=== PATIENT | male | born 1955 | race Caucasian/White ===

== ENCOUNTER 2023-07-09 10:09 | Emergency (ER) | payer MEDICARE ==
[~2023-07-09] VITALS: Ht 185.4 cm; Wt 90.7 kg
[2023-07-09] MEDS ORDERED: ATEN50 PO (10:45)
[2023-07-09] MEDS ORDERED: PRAV20 PO (10:46)
[2023-07-09] MEDS ORDERED: LOSA50 PO (10:46)
[2023-07-09] MEDS ORDERED: AMLO5 PO (10:46)
[2023-07-09] MEDS ORDERED: DOXAZOSIN MESYLA4 MG PO (10:47)
[2023-07-09 10:58] LABS: BASOPHILS ABSOLUTE AUTO 0.04 K/mm3 (0.00-0.23); BASOPHILS PERCENT AUTO 1 % (0-2); EOSINOPHILS ABSOLUTE AUTO 0.09 K/mm3 (0.00-0.68); EOSINOPHILS PERCENT AUTO 2 % (0-6); Hematocrit 50.3 % (37.0-53.0); Hemoglobin 18.3 g/dL (13.5-17.5); IMMATURE GRAN ABSOLUTE AUTO 0.01 K/mm3 (0.00-0.10); IMMATURE GRAN PERCENT AUTO 0 % (0-1); LYMPHOCYTES ABSOLUTE AUTO 1.46 K/mm3 (0.84-5.20); LYMPHOCYTES PERCENT AUTO 25 % (21-46); MONOCYTES ABSOLUTE AUTO 0.82 K/mm3 (0.16-1.47); MONOCYTES PERCENT AUTO 14 % (4-13); Mean Corpuscular HGB 34.6 pg (26.0-34.0); Mean Corpuscular HGB Conc 36.4 g/dL (31.5-36.5); Mean Corpuscular Volume 95 fL (80-100); Mean Platelet Volume 9.9 fL (9.1-12.4); NEUTROPHILS PERCENT AUTO 58 % (41-73); Platelet Count 181 K/mm3 (150-400); Red Blood Cell Count 5.29 M/mm3 (4.30-5.90); White Blood Cell Count 5.82 K/mm3 (4.00-11.30)
[2023-07-09 11:14] LABS: Albumin, Blood 3.7 g/dL (3.4-5.0); Bilirubin, Total 0.6 mg/dL (0.1-1.0); Calcium, Blood 8.9 mg/dL (8.5-10.1); Creatinine, Blood 0.64 mg/dL (0.60-1.20); Globulin, Blood 3.6 g/dL (2.2-4.0); Potassium, Blood 3.9 mmol/L (3.5-5.5); Total Protein, Blood 7.3 g/dL (6.4-8.2)
[2023-07-09 11:45] LABS: Source, Urine Clean Catch
[2023-07-09 12:03] LABS: Bilirubin, Urine Neg (Neg); Blood, Urine Neg (Neg); Glucose Qualitative, Urine Neg (Neg); Ketones, Urine Neg (Neg); Leukocyte Esterase, Urine Neg (Neg); Nitrite, Urine Neg (Neg); Protein, Urine Neg (Neg); Specific Gravity, Urine 1.005 (1.003-1.022); Urobilinogen, Urine NORM (Normal)
[2023-07-09 12:04] LABS: Appearance, Urine Clear (Clear); Color, Urine Yellow (P-Yellow)
[2023-07-09] MEDS ORDERED: OXYC5 PO (13:21)
[2023-07-09] MEDS ORDERED: METPRE4DP PO (13:21)
[2023-07-09 13:29] VITALS: BP 153/104
== END 2023-07-09 13:30 | disposition home or self-care (01) ==
LOC: ER 10:09
PROVIDERS: Physician Assistant
DX: M54.16 Radiculopathy, lumbar region (principal); F17.200 Nicotine dependence, unspecified, uncomplicated
CPT/HCPCS: 74177; 80053; 81003; 83690; 85025; 99284-25; Q9967

== ENCOUNTER 2024-06-28 08:29 | Inpatient (IN) | payer MEDICARE ==
[~2024-06-28] VITALS: Ht 185.4 cm; Wt 80.4 kg
[~2024-06-28 08:29] MED LIST: AMLO5 PO; ATEN50 PO; DOXAZOSIN MESYLA4 MG PO; LOSA50 PO; METPRE4DP PO; OXYC5 PO; PRAV20 PO
[2024-06-28] MEDS ORDERED: AMLODIPINE BESYL5 MG PO (09:16)
[2024-06-28] MEDS ORDERED: LOSARTAN-HCTZ1 EACH PO (09:17)
[2024-06-28] MEDS ORDERED: NEURONTIN300 MG PO (09:18)
[2024-06-28] MEDS ORDERED: Ondansetron HCl 2 MG / ML 2ML Vial IV ONE (10:00)
[2024-06-28] MEDS ORDERED: Morphine Sulfate 4 MG/1 ML Injection IV ONE (10:00)
[2024-06-28] MEDS ORDERED: NS 1,000 ML IV SCH ×3 (10:00→14:25)
[2024-06-28 10:48] LABS: BASOPHILS ABSOLUTE AUTO 0.06 K/mm3 (0.00-0.23); BASOPHILS PERCENT AUTO 1 % (0-2); EOSINOPHILS ABSOLUTE AUTO 0.04 K/mm3 (0.00-0.68); EOSINOPHILS PERCENT AUTO 1 % (0-6); Hemoglobin 16.4 g/dL (13.5-17.5); IMMATURE GRAN ABSOLUTE AUTO 0.02 K/mm3 (0.00-0.10); IMMATURE GRAN PERCENT AUTO 0 % (0-1); LYMPHOCYTES PERCENT AUTO 11 % (21-46); MONOCYTES ABSOLUTE AUTO 0.72 K/mm3 (0.16-1.47); MONOCYTES PERCENT AUTO 9 % (4-13); Mean Corpuscular HGB 35.5 pg (26.0-34.0); Mean Corpuscular HGB Conc 37.3 g/dL (31.5-36.5); Mean Corpuscular Volume 95 fL (80-100); NEUTROPHILS ABSOLUTE AUTO 6.16 K/mm3 (1.96-9.15); NEUTROPHILS PERCENT AUTO 78 % (41-73); Platelet Count 194 K/mm3 (150-400); RDW Coefficient Variation 12.1 % (11.7-14.2); RDW Standard Deviation 42.2 fL (35.1-46.3); Red Blood Cell Count 4.62 M/mm3 (4.30-5.90)
[2024-06-28 11:14] LABS: Albumin, Blood 3.8 g/dL (3.4-5.0); Albumin/Globulin Ratio 1.2 (0.8-1.8); Bun/Creatinine Ratio 16.2 (12.0-20.0); Calcium, Blood 9.1 mg/dL (8.5-10.1); Creatinine, Blood 0.56 mg/dL (0.60-1.20); Globulin, Blood 3.3 g/dL (2.2-4.0); Potassium, Blood 4.3 mmol/L (3.5-5.5); Total Protein, Blood 7.1 g/dL (6.4-8.2)
[2024-06-28 11:44] LABS: Influenza A, PCR NEGATIVE (NEGATIVE); Influenza B, PCR NEGATIVE (NEGATIVE); Resp Syncytial Virus, PCR NEGATIVE (NEGATIVE); SARS-Cov-2 (COVID-19) PCR, MMC NEGATIVE (NEGATIVE)
[2024-06-28] MEDS ORDERED: DiphenhydrAMINE HCl 50 MG/ML 1ML Vial IV ONE (12:25)
[2024-06-28] MEDS ORDERED: CefTRIAXone Sodium 1,000 MG in NS 100 ML IV ONE (12:25)
[2024-06-28] MEDS ORDERED: Acetaminophen 500 MG Tab PO ONE (12:25)
[2024-06-28] MEDS ORDERED: Prochlorperazine Edisylate 10 mg Vial IV ONE (12:25)
[2024-06-28] MEDS ORDERED: Folic Acid 1 MG TAB PO ONE (13:05)
[2024-06-28] MEDS ORDERED: Thiamine HCl 100 MG in NS 50 ML IV ONE (13:05)
[2024-06-28 13:18] LABS: Magnesium, Blood 1.8 mg/dL (1.6-2.4); Phosphorus, Blood 3.3 mg/dL (2.5-4.9)
[2024-06-28] MEDS ORDERED: LORazepam 2 MG/ML 1ML Injection IV PRN ×2 (14:00→14:05)
[2024-06-28] MEDS ORDERED: FLU VACC TS2024-25(6MOS UP)/PF 45 MCG/0.5 ML SYRINGE IM SCH (14:05)
[2024-06-28] MEDS ORDERED: Ondansetron HCl 2 MG / ML 2ML Vial IV PRN (14:05)
[2024-06-28] MEDS ORDERED: ChlordiazePOXIDE 25 MG Cap PO PRN ×2 (14:05)
[2024-06-28 14:08] LABS: Source, Urine Clean Catch
[2024-06-28] MEDS ORDERED: HydrALAZINE HCl 20 MG / ML 1ML Vial IV PRN (14:15)
[2024-06-28 14:25] LABS: Appearance, Urine Clear (Clear); Bilirubin, Urine Neg (Neg); Blood, Urine 1+ (Neg); Color, Urine Yellow (P-Yellow); Glucose Qualitative, Urine Neg (Neg); Ketones, Urine 2+ (Neg); Leukocyte Esterase, Urine Neg (Neg); Nitrite, Urine Neg (Neg); Protein, Urine Neg (Neg); Urobilinogen, Urine NORM (Normal); pH, Urine 6.5 (5.0-8.0)
[2024-06-28 14:57] LABS: Bacteria Rare /hpf; Red Blood Cells, Urine 0-2 /hpf (0-2); Squamous Epithelial Cells Rare /hpf (Few); White Blood Cells, Urine 0-2 /hpf (0-5)
[2024-06-28 16:00] VITALS: BP 173/99
[2024-06-28] MEDS ORDERED: Thiamine HCl 500 MG in NS 100 ML IV SCH (16:00)
[2024-06-28] MEDS ORDERED: Folic Acid 1 MG in NS 50 ML IV SCH (16:00)
[2024-06-28 16:30] VITALS: BP 165/125
[2024-06-28 16:50] VITALS: BP 159/112
--- NOTE | 2024-06-28 18:00 | NUR ---
NURSE NOTE PATIENT ARRIVED VIA GUR[facility]Y, DANGLED AT BEDSIDE THEN TRANSFERED TO PCU BED. PT SEEMS TO BE A BIT UNSTEADY ON HIS FEET. RESIDENTIAL GLAZIER SOCKS WERE APPLIED TO PATIENT'S FEET, BED ALARM ON, AND PATIENT ORIENTATED TO ROOM, UNIT FLOW, AND CALL LIGHT. SPOUSE WAS AT BEDSIDE AT ARRIVAL, SHE SAID SHE WILL BE BACK IN THE MORNING. DURING ADMISTION ASSESSMENT I ASKED THE PATIENT IF HE WISHED TO ABSTAIN FROM ALCOHOL USE ONCE DISCHARGED FROM THE HOSPITAL HE STATED NO, HE WILL CONTINUE TO DRINK WHEN HE GETS HOME. HIS MAIN CONCERN WITH COMING INTO THE HOSPITAL TODAY IS WANTING AN MRI ON HIS BACK FOR INCREASING PAIN AND DECREASING MOBILITY LEVELS. CALL LIGHT IN REACH, WILL CONTINUE TO TREAT UNTIL SHIFT CHANGE.
[2024-06-28 19:14] VITALS: BP 170/97
[2024-06-28] MEDS ORDERED: Famotidine 20 MG Tab PO SCH (21:00)
[2024-06-28] MEDS ORDERED: Tamsulosin HCl 0.4 MG Cap PO SCH (21:00)
[2024-06-28] MEDS ORDERED: Gabapentin 300 MG Cap PO SCH (21:00)
[2024-06-28 23:56] VITALS: BP 172/91
[2024-06-29] VITALS (7 sets, daily range): BP systolic 119–178; BP diastolic 68–111
[2024-06-29 06:10] LABS: Bun/Creatinine Ratio 19.9 (12.0-20.0); Calcium, Blood 8.9 mg/dL (8.5-10.1); Creatinine, Blood 0.5 mg/dL (0.60-1.20); Potassium, Blood 4.2 mmol/L (3.5-5.5)
--- NOTE | 2024-06-29 06:57 | NUR ---
NOC SHIFT SUMMARY PT IS ORIENTED X3-4 OVERNIGHT, CIWAS RANGING LOW TO HIGH, PRN ATIVAN GIVEN AND LIBRIUM - SEE EMAR AND ETOH W/D SCALE FOR DETAILS. SCATH X2 PER PROTOCOL, ABLE TO VOID SOME BUT RETAINED 600+ X2. TOLERATED WELL WITH COUDE CATH AND DEEP BREATHING. SR ON TELEMETRY, HTN NOTED - NOTIFIED DR. VALARIE GUTIERREZ AND PRN HYDRALIZINE ADDED. NO EDEMA, NO WOUNDS, PLEASANT AND COOPERATIVE. CALLED AND UPDATED, WILL BE IN THIS AM.
[2024-06-29] MEDS ORDERED: Enoxaparin 40 MG/0.4 ML SYR SC SCH (09:00)
[2024-06-29] MEDS ORDERED: Atenolol 50 MG Tab PO SCH (09:00)
[2024-06-29] MEDS ORDERED: Folic Acid 1 MG in NS 50 ML IV SCH (09:00)
[2024-06-29] MEDS ORDERED: Misc. Tablet PO SCH (09:00)
[2024-06-29] MEDS ORDERED: AmLODIPine Besylate 5 MG Tab PO SCH (09:00)
--- NOTE | 2024-06-29 09:19 | NUR ---
NURSE NOTE PATIENT AT BEDSIDE ASSITING WITH FILLING OUT MRI FORM. CALL LIGHT IN REACH.
[2024-06-29 11:22] LABS: Source, Urine Foley catheter
[2024-06-29 11:25] LABS: Bilirubin, Urine Neg (Neg); Blood, Urine Neg (Neg); Glucose Qualitative, Urine Neg (Neg); Ketones, Urine 2+ (Neg); Leukocyte Esterase, Urine Neg (Neg); Nitrite, Urine Neg (Neg); Protein, Urine Neg (Neg); Urobilinogen, Urine NORM (Normal)
[2024-06-29 11:32] LABS: Appearance, Urine Clear (Clear); Color, Urine Yellow (P-Yellow)
--- NOTE | 2024-06-29 17:53 | NUR ---
SHIFT SUMMARY; ASSUMED CARE AT 0700 WITH ORIENTATION NURSE ANTONIO. A/A/0X3 DURING SHIFT WITH INTERMITANT CONFUSION. CIWAS PER PROTOCOL, MEDICATED PER EMAR. CRUZ CATH PLACED WITH VERBAL ORDER FROM DR. FONTAINE FOR ACUTE URINARY RETENTION, DRAINING CLEAR YELLOW URINE TO GRAVITY. MOVES SELF IN BED, UNSTEADY ON FEET WITH 2 PERSON ASSIST. WILL REMAIN ON BEDREST UNTIL CAN SAFLEY STAND. SPOUSE AT BEDSIDE DURING SHIFT. CIWAS 6-20. WILL CONTINUE TO TREAT UNTIL CHANGE OF SHIFT.
--- NOTE | 2024-06-29 20:49 | NUR ---
ASSUMPTION OF CARE NOTE. PT AOX3-4, DIRECTABLE, COOPERATIVE WITH CARE THUS FAR. SOMEWHAT IMPULSIVE, ATTEMPTS OOB AT TIMES BUT IS REDIRECTABLE BACK INTO BED. BED ALARM ACTIVE. CIWA 10 PRE LIBRIUM ADMINISTRATION. PT NOW RESTING COMFORTABLY IN BED EATING A SNACK. BP ELEVATED ON 1999 VITALS, MANAGED VIA EMAR. VITALS OTHERWISE STABLE. ABLE TO TAKE PO MEDICATIONS WITH WAR. FLUIDS INFUSING. CRUZ IN PLACE, DRAINING TO GRAVITY WITH NO COMPLAINTS OF PAIN/PRESSURE. BED LOCKED IN LOWEST POSITION. CALL LIGHT LEFT WITHIN REACH. CONTINUING TO MONITOR.
[2024-06-30] VITALS (7 sets, daily range): BP systolic 101–185; BP diastolic 70–101
--- NOTE | 2024-06-30 00:19 | NUR ---
PT CONTINUES TO REST IN BED SINCE 1999 MEDICATION ADMINISTRATION. 0000 VITALS STABLE. PT EASILY WOKEN AND COOPERATIVE WITH CARE UPON WAKING. MAINTAINING ADEQUATE SATURATION ON ROOM AIR WHILE SLEEPING. CRUZ CONTINUES TO DRAIN TO GRAVITY. BED LOCKED IN LOWEST POSITION. BED ALARM REMAINS ACTIVE. CALL LIGHT LEFT WITHIN REACH. CONTINUING TO MONITOR.
--- NOTE | 2024-06-30 04:26 | NUR ---
SHIFT SUMMARY. SHIFT HAS BEEN UNREMARKABLE SINCE PREVIOUS NOTE. PT HAS SLEPT THROUGH MOST OF SHIFT AFTER MEDICATION ADMINISTRATION. EASILY AWOKEN AND IS COOPERATIVE UPON WAKING. 0400 BP WAS ELEVATED, ADMINISTERED IV HYDRALAZINE FOR MANAGEMENT. BED LOCKED IN LOWEST POSITION. CALL LIGHT LEFT WITHIN REACH. BED ALARM REMAINS ACTIVE. CONTINUING TO MONITOR.
[2024-06-30 04:35] LABS: Bun/Creatinine Ratio 13.3 (12.0-20.0); Calcium, Blood 8.5 mg/dL (8.5-10.1); Creatinine, Blood 0.53 mg/dL (0.60-1.20); Potassium, Blood 3.4 mmol/L (3.5-5.5)
[2024-06-30] MEDS ORDERED: Potassium Chloride 20 MEQ TabCR PO ONE (08:20)
--- NOTE | 2024-06-30 09:58 | NUR ---
ASSUMPTION OF CARE PT ALERT, ORIETNED TO NAME/, YEAR, AND PLACE. HE IS SLEEPY, SKIN INTACT, SCATTERED BRUSING T/O. SINUS, 80'S, SBP ELEVATED MEDICATED PER EMAR. +BS, CRUZ IN PLACE DRAINING TO GRAVITY. L/S DIM/COARSE T/O, NONPRODUCTIVE COUGH. CIWA MONITORING PRN, MEDICATIONS ORDERED FOR CIWA >8. PT DENIES N/V THIS AM, NO AUDITORY/TACTILE DISTURBANCES NOTED, TREMORS NOTED WITH EXTENSION OF ARMS. LEFT FA IV, NS RUNNING PER ORDERED. PROVIDER TO BEDSIDE THIS AM TO DISCUSS PLAN OF CARE. PT TO WORK WITH P.T AND POSSIBLE D/C TODAY OR OTHER IMAGING DEPENDING ON HOW P.T GOES. PROVIDER ASKED FOR CALL TO HIM ONCE SPOUSE ARRIVES, SPOUSE TO BEDSIDE, PROVIDER CALLED AND AT BEDSIDE TO DISCUSS PLAN WITH PT AND SPOUSE. AWAITING PT EVAL TODAY, WILL MONITOR PT.
[2024-06-30] MEDS ORDERED: LORazepam 1 MG Tab PO PRN (15:05)
[2024-06-30] MEDS ORDERED: Nicotine 21 MG PATCH TOP SCH (15:20)
--- NOTE | 2024-06-30 18:34 | NUR ---
SHIFT SUMMARY PT ALERT, ORIENTED TO SELF, YEAR, PLACE. NO ACUTE CHANGES T/O SHIFT. P.T WORKED WITH PT THIS AM. CALL PLACED TO PROVIDER RELATED TO PT BEING ANXIOUS BUT LOW CIWA SCORE, ORDERS PLACED FOR PRN ATIVAN AND NICOTINE PATCHES. PT WITH NO QUESTIONS OR CONCERNS AT THIS TIME. WILL MONITOR PT AND REPORT TO GENERAL CLAIMS AGENT RN.
--- NOTE | 2024-06-30 21:07 | NUR ---
ASSUMPTION OF CARE NOTE. PT AOX4 ON ASSESSMENT, PLEASANT, COOPERATIVE, ABLE TO MAKE NEEDS KNOWN. SPEECH MUCH LESS MUMBLED AND EASIER TO DISCERN THAN PREVIOUS SHIFT WITH THIS RN. BEFORE THIS RN WAS ABLE TO PERFORM MED PASS AND VITALS ASSESSMENT, PT CALLED SENIOR WINDOWS ADMINISTRATOR REPORTING THAT PT CALLED HER TO REPORT HE WAS FEELING VERY ANXIOUS AND UNABLE TO RELAX. SCORED CIWA OF 8 ON ASSESSMENT. MANAGED VIA 50 MG LIBRIUM PO. VITALS STABLE. MAINTAINING ADEQUATE SATURATION ON ROOM AIR. CRUZ REMAINS IN PLACE WITH NO COMPLAINTS OF PAIN/PRESSURE. TOLERATES PO INTAKE WELL. RUNNING SINUS ON TELE WITH RATE IN THE 70s-80s. PT HAS BEEN ABLE TO REST COMFORTABLY IN BED SINCE MEDICATION ADMINISTRATION. BED LOCKED IN LOWEST POSITION. CALL LIGHT LEFT WITHIN REACH. BED ALARM ACTIVE. CONTINUING TO MONITOR.
[2024-07-01] VITALS (7 sets, daily range): BP systolic 122–166; BP diastolic 72–100
--- NOTE | 2024-07-01 00:13 | NUR ---
PT DOING WELL AT THIS TIME. AWOKE TO ASK FOR SPRITE. AOX4, PLEASANT, CLEAR SPEECH, ABLE TO MAKE NEEDS KNOWN. CIWA IMPROVED FROM PREVIOUS EARLIER IN SHIFT. REPORTS BEING ABLE TO SLEEP WELL THUS FAR AND ANXIETY HAS MUCH IMPROVED. THIAMINE HUNG. BED LOCKED IN LOWEST POSITION. CALL LIGHT LEFT WITHIN REACH. CONTINUING TO MONITOR.
--- NOTE | 2024-07-01 04:56 | NUR ---
SHIFT SUMMARY. SHIFT HAS GONE WELL, UNREMARKABLE. PT AOX4, PLEASANT, COOPERATIVE WITH CARE, ABLE TO MAKE NEEDS KNOWN, CALLS APPROPRIATELY. CIWAs HAVE BEEN <=8 THROUGHOUT SHIFT. MANAGED VIA EMAR APPROPRIATELY. CRUZ REMAINS IN PLACE. VITALS HAVE BEEN STABLE. CONTINUES TO RUN SINUS ON TELE. PT EXPRESSES INTEREST IN WALKING AROUND TODAY WHEN HE WAKES UP TO "ASSESS WHERE HE IS AT". ALL MEDICATIONS ADMINISTERED ON TIME AND WITHOUT DIFFICULTY. BED LOCKED IN LOWEST POSITION. CALL LIGHT LEFT WITHIN REACH. BED ALARM REMAINS ACTIVE FOR SAFETY. CONTINUING TO MONITOR.
[2024-07-01 05:02] LABS: Bun/Creatinine Ratio 13.6 (12.0-20.0); Calcium, Blood 8.6 mg/dL (8.5-10.1); Creatinine, Blood 0.52 mg/dL (0.60-1.20); Magnesium, Blood 1.9 mg/dL (1.6-2.4); Potassium, Blood 3.5 mmol/L (3.5-5.5)
--- NOTE | 2024-07-01 05:47 | NUR ---
SPOKE WITH RESIDENT DR. GUTIERREZ REGARDING ELEVATED BP THIS MORNING. ADVISED THAT I ALREADY ADMINISTERED 10 MG IV HYDRALAZINE FOR MANAGEMENT WHICH HAS BEEN INEFFECTIVE IN MANAGEMENT THUS FAR. DR. GUTIERREZ ADVISED IT IS OKAY TO CONTINUE TO MONITOR AT THIS TIME.
[2024-07-01] MEDS ORDERED: Nicotine 21 MG PATCH TOP SCH (09:00)
[2024-07-01] MEDS ORDERED: Losartan Potassium 50 MG Tab PO SCH (09:00)
[2024-07-01] MEDS ORDERED: NICO21TP TOP (15:48)
[2024-07-01] MEDS ORDERED: TAMS.4ER PO (15:48)
[2024-07-01] MEDS ORDERED: MULVITA PO (15:49)
[2024-07-01] MEDS ORDERED: B-1100 M1 PO (15:50)
--- NOTE | 2024-07-01 16:50 | NUR ---
SHIFT SUMMARY ASSUMED CARE OF PT AT 0730. PT ALERT AND ORIENTED, ANXIOUS, MEDICATED PER EMAR BUT COOPERATIVE TO CARE, HR 70'S, SBP ELEVATED, MEDICATED PER EMAR, DENIED CP/PRESSURE, NUMB/TINGLING, +BS, NONTENDER, L/S DIM/COARSE T/O, 02 >92% ON RA. PT WITH CRUZ IN PLACE, YELLOW, URINE DRAINING TO GRAVITY. L FA IV, S/L. CIWA MONITORING PER PROTOCOL, CIWAS RANGING FROM 0-1. PT UP IN CHAIR T/O SHIFT, PT AMBULATED AROUND UNIT WITH FWW AND NURSE ASSIST. PER PROVIDER ORDER CRUZ WAS REMOVED. PT DID NOT HAVE ANY URINE OUTPUT, BLADDER SCA COMPLETED WITH 465ML OF URINE IN THE BLADDER, CALL PLACED TO PROVIDER AND ORDER TO INSERT CRUZ, CRUZ PUT IN, YELLOW URINE, DRAINING TO GRAVITY. PER PROVIDER PT OKAY FOR D/C WITH CRUZ. DISCHARGE ORDERS RECIEVED. DISCHARGE SUMMARY PT WITH CRUZ IN PLACE DRAINING TO GRAVITY. DISCHARGE EDUCATION PROVIDED TO PT. PCT REVIEWED HOW TO EMPTY CRUZ BAG WITH PT, PT DEMONSTRATED HOW TO DO IT. PT PROVIDED EDUCATION PACKETS FOR ALCOHOL WITHDRAWL, QUITTING NICOTINE, URINE RETENTION. PT HAD NO FURTHER QUESTIONS. L FA IV REMOVED, PRESSURE APPLIED, WRAPPED IN COBAN/GAUZE. PT LEFT VIA WHEELCHAIR WITH RN AT 1615.
== END 2024-07-01 16:20 | disposition home or self-care (01) | DRG 897 ==
LOC: ER 08:29 → PCU 14:00
PROVIDERS: Student in an Organized Health Care Education/Training Program; ADMIT Internal Medicine
PROC: 0T9B70Z Drainage of Bladder with Drainage Device, Via Natural or Artificial Opening (ICD-10-PCS; principal; 2024-06-28)
PROC: HZ2ZZZZ Detoxification Services for Substance Abuse Treatment (ICD-10-PCS; 2024-06-28)
DX: F10.239 Alcohol dependence with withdrawal, unspecified (principal); E87.1 Hypo-osmolality and hyponatremia; Z95.5 Presence of coronary angioplasty implant and graft; R33.9 Retention of urine, unspecified; I25.10 Atherosclerotic heart disease of native coronary artery without angina pectoris; F17.210 Nicotine dependence, cigarettes, uncomplicated; I10 Essential (primary) hypertension; M54.9 Dorsalgia, unspecified; G89.29 Other chronic pain; M19.90 Unspecified osteoarthritis, unspecified site; Z88.0 Allergy status to penicillin; Z88.8 Allergy status to other drugs, medicaments and biological substances; Z79.899 Other long term (current) drug therapy
CPT/HCPCS: 0241U; 36415; 51702; 51798; 80048; 80053; 81001; 81003; 83690; 83735; 84100; 85025; 87086; 93005; 93010; 94760; 96361; 96374; 96375; 97110; 97162; 97530; 99285-25; A9270; J0360; J1650; J2060; J2270; J2405; J3411; J7030

== ENCOUNTER → 2025-06-28 | Outpatient (CLI) | payer MEDICARE ==
[~2025-06-28] MED LIST changes: +AMLODIPINE BESYL5 MG PO; +B-1100 M1 PO; +LOSA25 PO; +LOSARTAN-HCTZ1 EACH PO; +MULVITA PO; +NEURONTIN300 MG PO; +NICO21TP TOP; +SILDENAFIL CIT100 MG PO; +TADALAFIL2.5 MG PO; +TAMS.4ER PO; +UREAPRO454 GM PO
[2025-06-28 16:34] LABS: BASOPHILS ABSOLUTE AUTO 0.01 K/mm3 (0.00-0.23); BASOPHILS PERCENT AUTO 0 % (0-2); EOSINOPHILS ABSOLUTE AUTO 0.05 K/mm3 (0.00-0.68); EOSINOPHILS PERCENT AUTO 1 % (0-6); Hematocrit 38.9 % (37.0-53.0); Hemoglobin 14.2 g/dL (13.5-17.5); IMMATURE GRAN ABSOLUTE AUTO 0.02 K/mm3 (0.00-0.10); IMMATURE GRAN PERCENT AUTO 0 % (0-1); LYMPHOCYTES ABSOLUTE AUTO 0.98 K/mm3 (0.84-5.20); LYMPHOCYTES PERCENT AUTO 17 % (21-46); MONOCYTES ABSOLUTE AUTO 0.72 K/mm3 (0.16-1.47); MONOCYTES PERCENT AUTO 13 % (4-13); Mean Corpuscular HGB Conc 36.5 g/dL (31.5-36.5); Mean Corpuscular Volume 93 fL (80-100); NEUTROPHILS ABSOLUTE AUTO 3.95 K/mm3 (1.96-9.15); NEUTROPHILS PERCENT AUTO 69 % (41-73); NRBC ABSOLUTE 0.00 K/mm3 (0.00-0.02); NRBC Auto 0.0 /100 WBC (0.0-0.2); Platelet Count 167 K/mm3 (150-400); RDW Coefficient Variation 12.8 % (11.7-14.2); RDW Standard Deviation 43.6 fL (35.1-46.3)
[2025-06-28 17:46] LABS: Alanine Aminotransfer (ALT/SGP 110.0 U/L (12-78); Albumin, Blood 3.7 g/dL (3.4-5.0); Albumin/Globulin Ratio 1.2 (0.8-1.8); Anion Gap 13.0 mmol/L (3-11); Aspartate Aminotrans (AST/SGOT 101.0 U/L (12-37); Bilirubin, Total 1.1 mg/dL (0.1-1.0); Blood Urea Nitrogen 4.0 mg/dL (8-24); CO2, Blood 25.0 mmol/L (21-32); Calcium, Blood 9.1 mg/dL (8.5-10.1); Chloride, Blood 86.0 mmol/L (98-108); Creatinine, Blood 0.49 mg/dL (0.60-1.20); Globulin, Blood 3.2 g/dL (2.2-4.0); Glucose, Blood 101.0 mg/dL (70-99); Potassium, Blood 3.9 mmol/L (3.5-5.5); Sodium, Blood 120.0 mmol/L (136-145); Total Protein, Blood 6.9 g/dL (6.4-8.2)
== END ==
LOC: LAB 16:26 → LAB SHORT 16:26
PROVIDERS: Physician Assistant
DX: R11.0 Nausea (principal); R42 Dizziness and giddiness
CPT/HCPCS: 80053; 85025

== ENCOUNTER 2025-08-05 05:12 | Emergency (ER) | payer MEDICARE ==
[~2025-08-05] VITALS: Ht 185.4 cm; Wt 83.9 kg
[2025-08-05 05:25] VITALS: BP 165/92
[2025-08-05 05:30] LABS: BASOPHILS ABSOLUTE AUTO 0.04 K/mm3 (0.00-0.23); BASOPHILS PERCENT AUTO 1 % (0-2); EOSINOPHILS ABSOLUTE AUTO 0.06 K/mm3 (0.00-0.68); EOSINOPHILS PERCENT AUTO 1 % (0-6); Hematocrit 41.7 % (37.0-53.0); Hemoglobin 15.0 g/dL (13.5-17.5); IMMATURE GRAN ABSOLUTE AUTO 0.02 K/mm3 (0.00-0.10); IMMATURE GRAN PERCENT AUTO 0 % (0-1); LYMPHOCYTES ABSOLUTE AUTO 0.83 K/mm3 (0.84-5.20); LYMPHOCYTES PERCENT AUTO 12 % (21-46); MONOCYTES ABSOLUTE AUTO 0.81 K/mm3 (0.16-1.47); MONOCYTES PERCENT AUTO 12 % (4-13); Mean Corpuscular HGB Conc 36.0 g/dL (31.5-36.5); Mean Corpuscular Volume 97 fL (80-100); NEUTROPHILS ABSOLUTE AUTO 5.24 K/mm3 (1.96-9.15); NEUTROPHILS PERCENT AUTO 75 % (41-73); NRBC ABSOLUTE 0.00 K/mm3 (0.00-0.02); NRBC Auto 0.0 /100 WBC (0.0-0.2); Platelet Count 162 K/mm3 (150-400); RDW Coefficient Variation 12.8 % (11.7-14.2); RDW Standard Deviation 46.4 fL (35.1-46.3)
[2025-08-05 05:49] LABS: Alanine Aminotransfer (ALT/SGP 67.0 U/L (12-78); Albumin, Blood 3.4 g/dL (3.4-5.0); Albumin/Globulin Ratio 1.0 (0.8-1.8); Anion Gap 12.0 mmol/L (3-11); Aspartate Aminotrans (AST/SGOT 96.0 U/L (12-37); Bilirubin, Total 0.8 mg/dL (0.1-1.0); Blood Urea Nitrogen 7.0 mg/dL (8-24); CO2, Blood 26.0 mmol/L (21-32); Calcium, Blood 8.7 mg/dL (8.5-10.1); Chloride, Blood 92.0 mmol/L (98-108); Creatinine, Blood 0.56 mg/dL (0.60-1.20); Globulin, Blood 3.5 g/dL (2.2-4.0); Glucose, Blood 114.0 mg/dL (70-99); Magnesium, Blood 2.1 mg/dL (1.6-2.4); Potassium, Blood 4.1 mmol/L (3.5-5.5); Sodium, Blood 126.0 mmol/L (136-145); Total Protein, Blood 6.9 g/dL (6.4-8.2)
[2025-08-05] MEDS ORDERED: CHLO25 PO (06:30)
== END 2025-08-05 07:14 | disposition home or self-care (01) ==
LOC: ER 05:12
PROVIDERS: Student in an Organized Health Care Education/Training Program
DX: E87.1 Hypo-osmolality and hyponatremia (principal); F10.939 Alcohol use, unspecified with withdrawal, unspecified; F17.200 Nicotine dependence, unspecified, uncomplicated; Z88.0 Allergy status to penicillin; Z88.8 Allergy status to other drugs, medicaments and biological substances; Z79.899 Other long term (current) drug therapy
CPT/HCPCS: 80053; 83735; 85025; 93005; 93010; 99284-25; A9270

== ENCOUNTER → 2025-08-10 | Outpatient (CLI) | payer MEDICARE ==
[~2025-08-10] MED LIST changes: +CHLO25 PO
== END ==
LOC: LAB 11:06 → LAB SHORT 11:06
DX: E87.1 Hypo-osmolality and hyponatremia (principal)
CPT/HCPCS: 83935